=== PATIENT | male | born 1980 | race African-American/Black ===

== ENCOUNTER 2022-03-04 13:03 | Emergency (ER) | payer BC ==
[2022-03-04 13:23] VITALS: BP 122/76; PULSE 94; RESP 18; TEMP 98.1; BMI 25.1
== END 2022-03-04 14:22 | disposition home or self-care (01) ==
LOC: JERFT 13:03 → JER 13:03 → JERFT 14:22
DX: Z11.3 Encounter for screening for infections with a predominantly sexual mode of transmission (principal)
CPT/HCPCS: 36415; 87491; 87591; 87661; 99284-25